=== PATIENT | female | born 1985 | race Two or more races ===

== ENCOUNTER 2018-04-23 12:03 | Emergency (ER) | payer OTHER, MEDICAID ==
[~2018-04-23] VITALS: Ht 180.3 cm; Wt 142.9 kg
[2018-04-23 12:20] VITALS: BP 114/68
--- NOTE | 2018-04-23 12:34 | Emergency Room Report ---
History of Present Illness General Chief Complaint: Pain Source: Patient (ABBIE RUANO M.D) Present Illness HPI 33-year-old female with recent uterine fibroid embolization 2 weeks ago presents with umbilical and lower abdominal cramping pain intermittently severe , no relief with Percocet and ibuprofen. She reports intermittent vaginal spotting, she reports no urinary symptoms, no fevers, no other symptomatology. She was sent by Dr. Justin Meek. (ABBIE RUANO M.D) Allergies: Coded Allergies: No Known Allergies (Unverified , 04/23/18) Patient History Past Medical History: see triage record Last Menstrual Period: Sunday Now: No : 1 Para: 0 Reviewed Nursing Documentation: PMH: Agreed; PSxH: Agreed (ABBIE RUANO M.D) Nursing Documentation-PMH Past Medical History: No Stated History (ABBIE RUANO M.D) Review of Systems All Other Systems: negative except mentioned in HPI (ABBIE RUANO M.D) Physical Exam Vital Signs Date Time Temp Pulse Resp B/P (MAP) Pulse Ox O2 Delivery O2 Flow Rate FiO2 04/23/18 12:09 97.8 90 20 110/72 98 Room Air 97.9 Sp02 EP Interpretation: reviewed, normal General Appearance: no apparent distress, alert, non-toxic Head: normocephalic Eyes: bilateral eye normal inspection, bilateral eye PERRL, bilateral eye EOMI ENT: normal ENT inspection, hearing grossly normal, normal pharynx, no angioedema, normal voice, moist mucus membranes Neck: normal inspection, full range of motion, supple, supple/symm/no masses Respiratory: chest non-tender, lungs clear, normal breath sounds, chest symmetrical, palpation of chest normal Cardiovascular #1: normal peripheral pulses, regular rate, rhythm Cardiovascular #2: 2+ radial (R), 2+ radial (L) Gastrointestinal: normal inspection, soft, no mass, no guarding, no rebound, tenderness - moderate diffuse tenderness, nonfocal Rectal: deferred Genitourinary: normal inspection, no CVA tenderness Musculoskeletal: back normal, gait/station normal, normal range of motion, non- tender, no calf tenderness, Aníbal's Sign negative Neurologic: alert, responsive, sql database administrator III-XII nml as tested, motor strength/tone normal, sensory intact, speech normal Psychiatric: judgement/insight normal, memory normal, mood/affect normal, no suicidal/homicidal ideation Skin: normal color, no rash, warm/dry, normal turgor Lymphatic: no adenopathy (ABBIE RUANO M.D) Medical Decision Making Diagnostic Impression: Primary Impression: Bladder infection Additional Impression: Abdominal pain ER Course Patient don't have an incidental test that was positive here, she also has a urinary tract infection as well as. I initially was wearing CT scan of her abdomen and pelvis per recommendations of her doctor Justin Meek, but we'll now obtain an ultrasound and a serum quantitative hCG level. She had mild periumbilical tenderness do not expect to find any life-threatening pathology, but she will need a workup for ectopic . She recently underwent uterine fibroid embolization, but this would not cause elevated hCG, so she likely has early versus ectopic. She was given IV Rocephin for urinary tract infection here. (ABBIE RUANO M.D) ER Course Refer to the initial report for the history and exam At this time pending the ultrasound and CT imaging Patient's hormone hCG Quant is 8 Patient is receiving hCG injections for weight loss and is not at this time CT imaging does not show any acute pathology Ultrasound was also negative patient does show evidence of bladder infection Placed on antibiotics including Keflex for home and requires close outpatient follow-up Labs Test 04/23/18 12:30 04/23/18 12:38 Urine Color Yellow Urine Appearance Turbid Urine pH 5 (4.5-8.0) Urine Specific [place] 1.025 (1.005-1.035) Urine Protein 3+ (NEGATIVE) Urine Glucose (UA) Negative (NEGATIVE) Urine Ketones 1+ (NEGATIVE) Urine Occult Blood 5+ (NEGATIVE) Urine Nitrite Positive (NEGATIVE) Urine Bilirubin Negative (NEGATIVE) Urine Urobilinogen Normal MG/DL (0.0-1.0) Urine Leukocyte Esterase 2+ (NEGATIVE) Urine RBC Tntc /HPF (0 - 2) Urine WBC 5-10 /HPF (0 - 2) Urine Squamous Epithelial Cells Few /LPF (NONE/OCC) Urine Bacteria Few /HPF (NONE) White Blood Count 5.9 K/UL (4.8-10.8) Red Blood Count 5.24 M/UL (4.20-5.40) Hemoglobin 8.7 G/DL (12.0-16.0) Hematocrit 31.5 % (37.0-47.0) Mean Corpuscular Volume 60 FL (80-99) Mean Corpuscular Hemoglobin 16.6 PG (27.0-31.0) Mean Corpuscular Hemoglobin Concent 27.6 G/DL (32.0-36.0) Red Cell Distribution Width 15.3 % (11.6-14.8) Platelet Count 344 K/UL (150-450) Mean Platelet Volume 8.4 FL (6.5-10.1) Neutrophils (%) (Auto) 56.6 % (45.0-75.0) Lymphocytes (%) (Auto) 30.0 % (20.0-45.0) Monocytes (%) (Auto) 10.5 % (1.0-10.0) Eosinophils (%) (Auto) 1.3 % (0.0-3.0) Basophils (%) (Auto) 1.5 % (0.0-2.0) Sodium Level 140 MMOL/L (136-145) Potassium Level 3.8 MMOL/L (3.5-5.1) Chloride Level 106 MMOL/L (98-107) Carbon Dioxide Level 26 MMOL/L (21-32) Anion Gap 8 mmol/L (5-15) Blood Urea Nitrogen 11 mg/dL (7-18) Creatinine 1.0 MG/DL (0.55-1.30) Estimat Glomerular Filtration Rate > 60 mL/min (>60) Glucose Level 77 MG/DL (74-106) Calcium Level 8.6 MG/DL (8.5-10.1) Total Bilirubin 0.2 MG/DL (0.2-1.0) Aspartate Amino Transf (AST/SGOT) 12 U/L (15-37) Alanine Aminotransferase (ALT/SGPT) 23 U/L (12-78) Alkaline Phosphatase 68 U/L (46-116) Total Protein 7.7 G/DL (6.4-8.2) Albumin 3.2 G/DL (3.4-5.0) Globulin 4.5 g/dL Albumin/Globulin Ratio 0.7 (1.0-2.7) Lipase 156 U/L (73-393) Human Chorionic Gonadotropin, Qual Positive Human Chorionic Gonadotropin, Quant 8 mIU/mL (1-6) (Jamehdor,Ali DO) CT/MRI/US Diagnostic Results CT/MRI/US Diagnostic Results : Imaging Test Ordered: Pelvic US (ABBIE RUANO M.D) CT/MRI/US Diagnostic Results : Impression pelvic ultrasoundImpression: Uterine fibroids Small amount of free pelvic fluid. Low-level internal echoes could indicate debris or small amount of blood Note nonvisualization of the left ovary CT abdomen pelvisImpression: Very questionable slightly striated nephrogram bilaterally, left greater than right, with equivocal slight indistinctness of the renal margins. Probably just artifactual related to phase of contrast administration, but if real could indicate inflammatory process such as pyelonephritis. Correlate with clinical and laboratory findings No acute or significant abnormality demonstrated otherwise. Normal-appearing uterus. No CT evidence of complication related to stated clinical history of recent myomectomy and uterine fibroid embolization Trace free cul-de-sac fluid, presumably physiologic Limited assessment of the GI tract due to lack of enteric contrast administration Evidence of prior gastric bypass surgery Gas bubble in the left abdominal wall, presumably related to recent subcutaneous injection Other findings as noted, including right groin surgical clip, small fat- containing umbilical hernia (Stephon Marsh DO) Last Vital Signs Date Time Temp Pulse Resp B/P (MAP) Pulse Ox O2 Delivery O2 Flow Rate FiO2 04/23/18 12:09 97.8 90 20 110/72 98 Room Air 97.9 (ABBIE RUANO M.D) Status: improved (Stephon Marsh DO) Disposition: HOME, SELF-CARE Condition: Improved Signed Out To: Dr. Marsh (ABBIE RUANO M.D) Scripts Hydrocodone Bit/Acetaminophen 10-325* (NORCO 10-325*) 1 Each Tablet 1 TAB ORAL Q8HR PRN for For Pain, #14 TAB 0 Refills PRN PAIN Prov: Stephon Marsh DO 04/23/18 Additional Instructions: Patient will follow up with Dr. Meek either tomorrow or on and return with any changes or concerns ABBIE RUANO M.D Apr 23, 2018 12:34 Stephon Marsh DO Apr 23, 2018 19:39
[2018-04-23] MEDS ORDERED: Isovue-300 100ml vial INJ PRN ×2 (12:45→15:30)
[2018-04-23] MEDS ORDERED: Morphine Sulfate 4mg/ml Inj IVP ONE ×2 (12:45→15:45)
[2018-04-23 13:04] LABS: BASOPHILS % (AUTO) 1.5 % (0.0-2.0); EOSINOPHILS % (AUTO) 1.3 % (0.0-3.0); HEMATOCRIT 31.5 % (37.0-47.0); HEMOGLOBIN 8.7 G/DL (12.0-16.0); MEAN CORPUSCULAR VOLUME 60 FL (80-99); MONOCYTES % (AUTO) 10.5 % (1.0-10.0); NEUTROPHILS % (AUTO) 56.6 % (45.0-75.0); PLATELET COUNT 344 K/UL (150-450); RED BLOOD COUNT 5.24 M/UL (4.20-5.40); RED CELL DISTRIBUTION WIDTH 15.3 % (11.6-14.8); WHITE BLOOD COUNT 5.9 K/UL (4.8-10.8)
[2018-04-23 13:15] LABS: APPEARANCE,URINE TURBID; BILIRUBIN, URINE NEGATIVE (NEGATIVE); GLUCOSE, URINE (UA) NEGATIVE (NEGATIVE); KETONES,URINE 1+ (NEGATIVE); LEUKOCYTE ESTERASE ,URINE 2+ (NEGATIVE); NITRITE,URINE POSITIVE (NEGATIVE); PH,URINE 5 (4.5-8.0); PROTEIN,URINE 3+ (NEGATIVE); UROBILINOGEN,URINE NORMAL MG/DL (0.0-1.0)
[2018-04-23 13:15] LABS: ANION GAP 8 mmol/L (5-15); BLOOD UREA NITROGEN 11 mg/dL (7-18); CALCIUM 8.6 MG/DL (8.5-10.1); CARBON DIOXIDE 26 MMOL/L (21-32); CHLORIDE 106 MMOL/L (98-107); POTASSIUM 3.8 MMOL/L (3.5-5.1); SODIUM 140 MMOL/L (136-145)
[2018-04-23 13:19] LABS: COLOR,URINE YELLOW
[2018-04-23 13:20] VITALS: BP 120/75
[2018-04-23 13:20] LABS: ALANINE AMINOTRANSFERASE 23 U/L (12-78); ALBUMIN 3.2 G/DL (3.4-5.0); ALBUMIN/GLOBULIN RATIO 0.7 (1.0-2.7); ALKALINE PHOSPHATASE 68 U/L (46-116); ASPARTATE AMINO TRANSFERASE 12 U/L (15-37); BILIRUBIN,TOTAL 0.2 MG/DL (0.2-1.0)
[2018-04-23] MEDS ORDERED: cefTRIAXone 1 GM in NS 55 ML IVPB ONE (13:50)
--- NOTE | 2018-04-23 16:34 | Diagnostic Imaging Report ---
Indication: Abdominal pain, history of recent myomectomy and uterine artery embolization, non patient Technique: Transabdominal and transvaginal images Comparison: none Findings: Uterus measures 8 cm in length by 4 cm AP. Endometrium is not thickened, measuring 1 mm thick. There is a 12 mm submucosal fibroid noted. This measures 17 mm long axis dimension. Other small intramural fibroids are noted as well. There is a small amount of free pelvic fluid with low level internal echoes. Right ovary measures 2.3 cm length. Left ovary could not be demonstrated. Impression: Uterine fibroids Small amount of free pelvic fluid. Low-level internal echoes could indicate debris or small amount of blood Note nonvisualization of the left ovary
--- NOTE | 2018-04-23 16:48 | Diagnostic Imaging Report ---
Clinical Indication: Vaginal spotting, pelvic cramping, lower abdominal pain, history of uterine fibroid embolization 2 weeks ago Technique: No oral contrast utilized, per emergency room physician request IV administration nonionic contrast. Venous phase spiral acquisition obtained through the abdomen and pelvis. Multiplanar reconstructions were generated. Total dose length product 1098.51 mGycm. CTDIvol(s) 19.28 mGy. Dose reduction achieved using automated exposure control Comparison: Pelvic and endovaginal ultrasound performed immediately prior Findings: The uterus is normal in size and shape, and discrete fibroids are not identifiable on CT. It demonstrates normal enhancement and normal appearing endometrium. Both ovaries are normal in size and appearance. There is a small amount of free cul-de-sac fluid. Lack of enteric contrast limits assessment of the GI tract. The appendix is normal. No evidence of diverticulosis or diverticulitis. No evidence of colonic wall thickening. No free intraperitoneal air. There is a tiny fat-containing umbilical hernia. A gas bubble is seen in the left abdominal wall. There is evidence of prior gastric bypass surgery. The distal esophagus and duodenum are unremarkable. The liver, gallbladder, bile ducts, pancreas, spleen, adrenals are unremarkable. There is equivocally a slightly striated nephrogram bilaterally, left greater than right, and slight indistinctness to the renal margins. No focal renal abnormality or hydronephrosis. No pelvic mass or adenopathy. A surgical clip is seen in the right groin. Included lung bases are clear. The bones are unremarkable Impression: Very questionable slightly striated nephrogram bilaterally, left greater than right, with equivocal slight indistinctness of the renal margins. Probably just artifactual related to phase of contrast administration, but if real could indicate inflammatory process such as pyelonephritis. Correlate with clinical and laboratory findings No acute or significant abnormality demonstrated otherwise. Normal-appearing uterus. No CT evidence of complication related to stated clinical history of recent myomectomy and uterine fibroid embolization Trace free cul-de-sac fluid, presumably physiologic Limited assessment of the GI tract due to lack of enteric contrast administration Evidence of prior gastric bypass surgery Gas bubble in the left abdominal wall, presumably related to recent subcutaneous injection Other findings as noted, including right groin surgical clip, small fat-containing umbilical hernia The CT scanner at [facility] is accredited by the [employer] and the scans are performed using protocols designed to limit radiation exposure to as low as reasonably achievable to attain images of sufficient resolution adequate for diagnostic evaluation.
[2018-04-23] MEDS ORDERED: NORCO 10-325 T1 EACH ORAL (17:14)
[2018-04-23 17:28] VITALS: BP 120/75
== END 2018-04-23 17:28 | disposition home or self-care (01) ==
LOC: EMR 12:56
DX: N30.90 Cystitis, unspecified without hematuria (principal); Z98.890 Other specified postprocedural states
CPT/HCPCS: 36415; 74177; 76830; 76856; 80053; 81003; 83690; 84702; 84703; 85025; 86900; 86901; 96360; 96361; 96374; 96375; 99284; J0696; J2270; J2405; Q9967